=== PATIENT | male | born 1965 | race African-American/Black ===

== ENCOUNTER 2017-10-23 07:39 | Emergency (ER) | payer BC ==
[~2017-10-23] VITALS: Ht 185.4 cm; Wt 84.3 kg
[~2017-10-23 07:39] MED LIST: FLONASE16 G1 BOTH NARES; HYDROCHLOROTH12.5 M3 PO; NORVASC5 MG PO; PHOSPHA250 MG PO
[2017-10-23 08:45] LABS: HEMATOCRIT 45.6 % (38.0-50.0); HEMOGLOBIN 15.7 G/DL (12.5-16.6); MCH 29.6 PG (29.0-34.0); MCHC 34.4 G/DL (30.0-36.0); PLATELET COUNT 168 K/uL (156-360); RBC DIS.WIDTH-SD 37.9 % (39-53); WHITE BLOOD COUNT 4.6 K/uL (4.1-10.2)
[2017-10-23 08:56] LABS: CHLORIDE 104 mEq/L (99-109); POTASSIUM 3.6 mEq/L (3.7-5.4); SODIUM 140 mEq/L (136-147)
[2017-10-23 08:57] LABS: GLUCOSE 115 mg/dL (70-99)
[2017-10-23 09:02] LABS: CREATININE 1.2 mg/dL (0.6-1.3); GFR ESTIMATE (CALCULATED) > 59 mL/min/ (58.99-99999); UREA NITROGEN (BUN) 13 mg/dL (9-23)
[2017-10-23 09:06] LABS: TROP-I INTERPRETATION NEGATIVE; TROPONIN-I < 0.01 ng/mL (0.0-0.30)
[2017-10-23 09:29] LABS: MAGNESIUM 2.1 mg/dL (1.3-2.7)
[2017-10-23 12:27] VITALS: BP 135/80
[2017-10-23 15:13] LABS: TROP-I INTERPRETATION NEGATIVE; TROPONIN-I 0.01 ng/mL (0.0-0.30)
[2017-10-23 16:00] VITALS: BP 111/72
[2017-10-23] MEDS ORDERED: ASPIR 8181 M1 PO (16:35)
[2017-10-23 21:32] LABS: TROP-I INTERPRETATION NEGATIVE; TROPONIN-I < 0.01 ng/mL (0.0-0.30)
[2017-10-24 00:44] VITALS: BP 106/50
[2017-10-24 07:42] VITALS: BP 112/67
[2017-10-24 09:41] LABS: CHLORIDE 105 MEQ/L (99-109); CREATININE 1.2 MG/DL (0.6-1.3); GFR ESTIMATE (CALCULATED) > 59 mL/min/ (58.99-99999); GLUCOSE 125 mg/dL (70-99); POTASSIUM 3.9 MEQ/L (3.7-5.4); SODIUM 140 MEQ/L (136-147); UREA NITROGEN (BUN) 15 mg/dL (9-23)
[2017-10-24 10:11] LABS: THYROTROPIN (TSH) 3.9 MIU/L (0.4-5.5)
[2017-10-24] MEDS ORDERED: ATORVASTATIN CA80 MG PO (11:18)
== END 2017-10-24 13:51 | disposition home or self-care (01) ==
LOC: EME 07:39 → ENRESERV 10:35 → CANRESERV 10:35 → EDOF 10:56 → 5SOUTH 10:56 → EDOF 10:56 → ENRESERV 11:03 → 5SOUTH 12:02 → ENPENDDIS 10-24 → 5SOUTH 10-24 13:51
PROVIDERS: Internal Medicine
DX: R00.2 Palpitations (principal); R00.1 Bradycardia, unspecified; S16.1XXA Strain of muscle, fascia and tendon at neck level, initial encounter; X58.XXXA Exposure to other specified factors, initial encounter; I10 Essential (primary) hypertension; E78.5 Hyperlipidemia, unspecified; R51 Headache; R10.32 Left lower quadrant pain; I51.7 Cardiomegaly; Z79.82 Long term (current) use of aspirin
CPT/HCPCS: 71020; 80048; 83735; 84443; 84484; 85027; 93005; 99281; 99285; G0378; J1885